=== PATIENT | female | born 1975 | race Caucasian/White ===

== ENCOUNTER 2019-08-06 20:32 | Inpatient (IN) | payer OTHER ==
[~2019-08-06] VITALS: Ht 172.7 cm; Wt 104.0 kg
[2019-08-06 20:36] VITALS: BP 85/53
[2019-08-06] MEDS ORDERED: LANTUS SUBQ (20:46)
[2019-08-06] MEDS ORDERED: HUMALOG KW200 UNIT/1 SUBQ (20:47)
[2019-08-06] MEDS ORDERED: METFORMIN HCL500 M3 PO (20:47)
[2019-08-06] MEDS ORDERED: AMBIEN5 MG PO (20:48)
[2019-08-06] MEDS ORDERED: MELATONIN5 M4 PO (20:48)
[2019-08-06] MEDS ORDERED: TOPROL XL25 MG PO (20:48)
[2019-08-06 21:18] LABS: HEMATOCRIT 23.6 % (37.0-47.0); HEMOGLOBIN 7.4 gm/dL (12.0-15.0); MCH 20.1 pg (26.0-34.0); MCHC 31.3 g/dL (28.0-37.0); MCV 64.3 fL (80.0-100.0); MPV 7.1 fl. (7.2-11.1); NUCLEATED RBCS 0 /100WBC; PLATELET COUNT* 595 thou/uL (150-400); RBC 3.67 mil/uL (4.20-5.00); RDW-CV 24.6 % (10.5-14.5); WBC 26.3 thou/uL (4.0-11.0)
[2019-08-06 21:28] LABS: CALCIUM 8.4 mg/dL (8.5-10.1); CREATININE 1.7 mg/dL (0.6-1.3)
[2019-08-06 21:32] LABS: INR 1.6; PROTIME 16.2 Seconds (9.20-11.50)
[2019-08-06 21:39] LABS: TOTAL BILIRUBIN 2.5 mg/dL (<0.1-1.0)
[2019-08-06 21:40] LABS: POTASSIUM 2.9 mmol/L (3.5-5.1)
[2019-08-06 21:43] LABS: ACETAMINOPHEN < 2 ug/mL (10-30)
[2019-08-06 21:44] LABS: SALICYLATE < 2.8 mg/dL (2.8-20.0)
[2019-08-06 21:48] LABS: ABSOLUTE BASOPHILS 0.3 thou/uL (0.0-0.2); ABSOLUTE EOSINOPHILS 0.3 thou/uL (0.0-0.7); ABSOLUTE LYMPHOCYTES 1.1 thou/uL (0.8-5.3); ABSOLUTE MONOCYTES 1.3 thou/uL (0.0-1.2); ABSOLUTE NEUTROPHILS 23.4 thou/uL (1.6-8.1); CLUMPED PLTS FEW; PLATELET ESTIMATE INCREASED; TOXIC GRANULATION 2+
[2019-08-06 21:49] LABS: ANISOCYTOSIS 2+; HYPOCHROMASIA 2+; POIKILOCYTOSIS 2+
[2019-08-06 21:50] LABS: MICROCYTES 2+; OVALOCYTES Occasional; SCHISTOCYTES 1+; TARGET CELLS Occasional; TEARDROPS Occasional
[2019-08-06 21:54] LABS: INFLUENZA A ANTIGEN Negative (Negative); INFLUENZA B ANTIGEN Negative (Negative)
[2019-08-06 22:20] LABS: URINE BLOOD 3+ (Negative); URINE CLARITY CLOUDY; URINE COLOR ORANGE; URINE GLUCOSE-RANDOM NEGATIVE (Negative); URINE KETONES TRACE (Negative); URINE NITRITE-REFLEX NEGATIVE (Negative); URINE PROTEIN 2+ (Negative); URINE SPECIFIC GRAVITY >= 1.030 (1.005-1.030)
[2019-08-06 22:21] LABS: URINE BILIRUBIN 2+ (Negative); URINE LEUKOCYTES-REFLEX 2+ (Negative)
[2019-08-06 22:25] LABS: ICTOTEST (BILI CONFIRMATORY) Positive (Negative)
[2019-08-06 22:26] LABS: BACTERIA-REFLEX >30 Many /HPF (None Seen); CASTS None Seen /LPF (None Seen); MUCUS 4-6 Moderate strn/LPF (None Seen); SQUAMOUS 0-3 Few /LPF (0-3); URINE RBC >20 Many /HPF (0-2); URINE WBC-REFLEX >25 Many /HPF (0-5); WBC CLUMPS Moderate (None Seen)
[2019-08-06 22:27] LABS: CRYSTALS None Seen /LPF (None Seen)
[2019-08-06 22:28] LABS: AMP/METHAMP Negative (Negative); BARBITURATES Negative (Negative); BENZODIAZEPINES Negative (Negative); COCAINE Negative (Negative); METHADONE Negative (Negative); OPIATES POSITIVE (Negative); PCP Negative (Negative); THC Negative (Negative)
[2019-08-06 23:26] LABS: BE -10.1 mmol/L (-2 to +3); PCO2 26.1 mmHg (35.0-45.0); PO2 93.4 mmHg (75.0-100.0); pH 7.355 (7.340-7.450)
[2019-08-07] VITALS (23 sets, daily range): BP systolic 107–156; BP diastolic 60–92
--- NOTE | 2019-08-07 05:01 | NUR ---
VITALS STABLE, AFEBRILE. DENIES PAIN. 50CC UOP, TEA COLOR. PT DENIES URGENCY, DYSURIA. BMX1, SOME BLEEDING NOTED IN STOOL, PT REPORTS SHE IS ON HER PERIOD. OTHERWISE UNEVENTFUL NIGHT. CALL LIGHT WITHIN REACH. WILL CONTINUE MONITORING.
--- NOTE | 2019-08-07 11:16 | NUR ---
ICU rounds: Pt lives at home alone. Pt mother supportive. Pt alert and oriented. Pt SBA with mobility and ADLs at this time. SW to continue to follow to assist with safe dc planning and provide resources/referrals if needs arise.
[2019-08-07 12:29] LABS: MAGNESIUM 1.4 mg/dL (1.8-2.4); POTASSIUM 3.8 mmol/L (3.5-5.1)
--- NOTE | 2019-08-07 13:41 | EKG ---
[place] [address] ELECTROCARDIOGRAM REPORT Name: AUDRA ONEIL Room: [address] ADM IN .R.#: [id number] Admission: 08/06/19 Attend Phys: Mikael Correa MD Discharge: Date of : 77 Report #: [id number] THIS REPORT FOR: //name// [facility] ED Test Date: 2019-08-06 Test Time: 20:42:15 Pat Name: AUDRA ONEIL Department: Room: [facility] Gender: F Cartographic Aide: MA : 1975 Requested By: Simón Cline Order Number: [id number] MD: Sukhdeep Espana Measurements Intervals Seaman Rate: 127 P: 62 MO: 133 QRS: 21 QRSD: 90 T: -4 QT: 316 QTc: 460 Interpretive Statements Sinus tachycardia Abnormal R-wave progression, early transition Borderline T abnormalities, anterior leads Baseline wander in lead(s) V1 No previous ECG available for comparison Electronically Signed On 08-07-2019 13:41:00 INFORMATION TECHNOLOGY TEACHER by Sukhdeep Espana [email or web address] <ELECTRONICALLY SIGNED> By: Sukhdeep Espana MD, [facility] 08/07/19 1341 41 41 Sukhdeep Espana MD, [facility] /EPI
--- NOTE | 2019-08-07 17:43 | NUR ---
PT CARE ASSUMED AFTER REPORT. ASSESSMENTS COMPLETE. MAG AND POTASSIUM REPLACEMENTS GIVEN. PT ST ON MONITOR. EVENTUALLY RATE INTO THE 130'S WITH RR IN THE 30'S. DR MOORE NOTIFIED OF HR,RR, AND EDEMA. ORDERS RECEIVED FOR LACTIC ACID, CBC, AND BMP AND D5NS DECREASED TO 50ML/H. MAX TEMP 100.8. PRN PAIN MEDICATION GIVEN PER PT REQUESTS. SLOWLY PROGRESSING TOWARDS GOALS.
[2019-08-07 19:11] LABS: HEMATOCRIT 22.1 % (37.0-47.0); HEMOGLOBIN 7.1 gm/dL (12.0-15.0); MCH 20.2 pg (26.0-34.0); MCHC 31.9 g/dL (28.0-37.0); MCV 63.3 fL (80.0-100.0); MPV 7.3 fl. (7.2-11.1); RBC 3.49 mil/uL (4.20-5.00); RDW-CV 24.5 % (10.5-14.5); WBC 21.3 thou/uL (4.0-11.0)
[2019-08-07 19:20] LABS: CALCIUM 8.2 mg/dL (8.5-10.1); CREATININE 1.2 mg/dL (0.6-1.3); POTASSIUM 3.6 mmol/L (3.5-5.1)
[2019-08-08] VITALS (21 sets, daily range): BP systolic 109–143; BP diastolic 59–86
--- NOTE | 2019-08-08 05:29 | NUR ---
VITALS STABLE, AFEBRILE. PT SLEPT THROUGH THE NIGHT. NO BM, 200CC UOP. COMPLAINS OF BACK PAIN. OTHERWISE UNEVENTFUL NIGHT. CALL LIGHT WITHIN REACH. WILL CONTINUE MONITORING.
[2019-08-08 09:30] LABS: NUCLEATED RBCS 0 /100WBC
[2019-08-08 09:32] LABS: ABSOLUTE BASOPHILS 0.1 thou/uL (0.0-0.2); ABSOLUTE EOSINOPHILS 0.1 thou/uL (0.0-0.7); ABSOLUTE LYMPHOCYTES 2.3 thou/uL (0.8-5.3); ABSOLUTE MONOCYTES 1.4 thou/uL (0.0-1.2); ABSOLUTE NEUTROPHILS 18.4 thou/uL (1.6-8.1); BASOPHILS 0.3 %; EOSINOPHILS 0.6 %; HEMATOCRIT 21.4 % (37.0-47.0); LYMPHOCYTES 10.3 %; MCH 19.9 pg (26.0-34.0); MCHC 31.3 g/dL (28.0-37.0); MCV 63.4 fL (80.0-100.0); MONOCYTES 6.3 %; PLATELET COUNT* 663 thou/uL (150-400); POLYS 82.5 %; RBC 3.38 mil/uL (4.20-5.00); RDW-CV 25.2 % (10.5-14.5); WBC 22.3 thou/uL (4.0-11.0)
[2019-08-08 09:35] LABS: HEMOGLOBIN 6.7 gm/dL (12.0-15.0)
[2019-08-08 09:44] LABS: CALCIUM 8.6 mg/dL (8.5-10.1); POTASSIUM 3.8 mmol/L (3.5-5.1)
[2019-08-08 11:02] LABS: % SATURATION 2 % (20-39); IRON < 5 ug/dL (50-175)
--- NOTE | 2019-08-08 12:36 | NUR ---
ICU rounds: pt receiving blood transfusion. Stepfather at BS. Pt states she will go to her mother's house upon dc. No plans for dc over the weekend
[2019-08-08 14:57] LABS: HEMATOCRIT 22.9 % (37.0-47.0); HEMOGLOBIN 7.3 gm/dL (12.0-15.0)
--- NOTE | 2019-08-08 16:39 | NUR ---
PT A&O x4. ECG SHOWS ST. I UNIT OF BLOOD TRANSFUSED. GETS UP TO THE BSC, STB ASSIST. GOOD UOP. TOLERATING DIET. CT ABD/PELVIS DONE. REPORT GIVEN TO NITA ISRAEL, TELE.
[2019-08-09] VITALS (7 sets, daily range): BP systolic 107–151; BP diastolic 57–79
--- NOTE | 2019-08-09 05:37 | NUR ---
VITALS STABLE, AFEBRILE. PT SLEPT THROUGH THE NIGHT. COMPLAINS OF BACK PAIN. HR 120s-130s THROUGH MOST OF THE NIGHT. PT DENIES CP/SOB/N/V. OTHERWISE UNEVENTFUL NIGHT. CALL LIGHT WITHIN REACH. WILL CONTINUE MONITORING.
[2019-08-09 14:05] LABS: ABSOLUTE EOSINOPHILS 0.2 thou/uL (0.0-0.7); ABSOLUTE LYMPHOCYTES 2.6 thou/uL (0.8-5.3); ABSOLUTE MONOCYTES 1.3 thou/uL (0.0-1.2); BASOPHILS 0.3 %; HEMATOCRIT 21.2 % (37.0-47.0); LYMPHOCYTES 17.2 %; MCH 20.6 pg (26.0-34.0); MCHC 32.7 g/dL (28.0-37.0); MCV 63.2 fL (80.0-100.0); MONOCYTES 8.9 %; NUCLEATED RBCS 0 /100WBC; POLYS 72.6 %; RBC 3.36 mil/uL (4.20-5.00); RDW-CV 25.9 % (10.5-14.5); WBC 15.1 thou/uL (4.0-11.0)
[2019-08-09 14:13] LABS: PLATELET COUNT* 553 thou/uL (150-400)
[2019-08-09 14:17] LABS: ALBUMIN 1.3 g/dL (3.4-5.0); CALCIUM 8.3 mg/dL (8.5-10.1); CREATININE 0.9 mg/dL (0.6-1.3); HEMOGLOBIN 6.9 gm/dL (12.0-15.0); POTASSIUM 3.4 mmol/L (3.5-5.1); TOTAL BILIRUBIN 1.4 mg/dL (<0.1-1.0); TOTAL PROTEIN 6.2 g/dL (6.4-8.2)
--- NOTE | 2019-08-09 19:51 | NUR ---
ASSUMED PT CARE AT 0730. ASSESSMENT COMPLETED CHARTED. ABLE TO MAKE NEEDS KNOWN. UP WITH SBA. IV FLUIDS STOPPED TODAY DUE TO HGB 6.9, NOTIFIED WILL REDRAW TOMORROW FOR NEW ORDERS IF NEEDED. PT SLEEPING MOST OF THE DAY. 2L O2. PT COUGHING BUT NO SUPTUM NOTED. WILL CONTINUE TO MONITOR.
[2019-08-10 03:58] VITALS: BP 128/68
[2019-08-10 05:15] LABS: HEMATOCRIT 21.3 % (37.0-47.0); MCH 20.7 pg (26.0-34.0); MCHC 32.7 g/dL (28.0-37.0); MCV 63.3 fL (80.0-100.0); MPV 6.9 fl. (7.2-11.1); RBC 3.37 mil/uL (4.20-5.00); RDW-CV 25.7 % (10.5-14.5); WBC 12.4 thou/uL (4.0-11.0)
[2019-08-10 08:00] VITALS: BP 147/80
--- NOTE | 2019-08-10 08:09 | NUR ---
PT A+O X4. USES CALL LIGHT APPROPRIATELY TO GET UP TO THE BATHROOM. STEAADY WITH STANDBY ASSIST. TRACING MILD ST ON MONITOR. NORCO @ HS EFFECTIVE FOR PAIN. PRN COUGH MED EFFECTIVE- GIVEN X 2. RESTED THROUGH MOST OF NIGHT. CALL LIGHT IN REACH. HOURLY ROUNDING FOR SAFETY.
[2019-08-10 15:02] VITALS: BP 123/63
--- NOTE | 2019-08-10 17:12 | NUR ---
ASSUMED PT CARE AT 0730. ASSESSMENT COMPLETED CHARTED. ABLE TO MAKE NEEDS KNOWN. UP WITH SBA. RESTING IN BED MOST OF THE DAY. C/O COUGH AND PAIN AND GAVE PRN FOR BOTH PER EMAR. MOM AT BEDSIDE MOST OF THE DAY. CALL LIGHT WITHIN REACH. WILL CONTINUE TO MONITOR.
[2019-08-10 18:35] VITALS: BP 153/81
[2019-08-10 20:00] VITALS: BP 137/69
[2019-08-11 00:06] VITALS: BP 133/53
[2019-08-11 03:45] VITALS: BP 140/63
--- NOTE | 2019-08-11 04:17 | NUR ---
ASSUMED CARE AT APPROX 1930. PT IS AWAKE AND ORIENTED X4. VSS ON 2L OF O2/NC. PATTERN REPAIR PERSON IN PLACE TRACING SR/ST. ASSESSMENT DONE AND CHARTED. PT C/O BACK PAIN THAT IS CHRONIC, PARTIALLY RELIEVED BY PAIN MEDS GIVEN PER SEP. PT IS ABLE TO SLEEP MOST OF THE NIGHT. DENIES DIZZINESS/LIGHTHEADEDNESS. CALL LIGHT WITHIN REACH. HIGH FALL PRECAUTIONS IN PLACE. HOURLY ROUNDING DONE FOR PT SAFETY.
[2019-08-11 06:09] LABS: ALBUMIN 1.4 g/dL (3.4-5.0); CALCIUM 7.9 mg/dL (8.5-10.1); CREATININE 0.8 mg/dL (0.6-1.3); HEMATOCRIT 21.4 % (37.0-47.0); MCH 20.6 pg (26.0-34.0); MCHC 32.4 g/dL (28.0-37.0); MCV 63.4 fL (80.0-100.0); MPV 7.1 fl. (7.2-11.1); NUCLEATED RBCS 0 /100WBC; PLATELET COUNT* 520 thou/uL (150-400); POTASSIUM 3.2 mmol/L (3.5-5.1); RBC 3.38 mil/uL (4.20-5.00); RDW-CV 26.2 % (10.5-14.5); TOTAL BILIRUBIN 0.7 mg/dL (<0.1-1.0); TOTAL PROTEIN 6.6 g/dL (6.4-8.2); WBC 9.8 thou/uL (4.0-11.0)
[2019-08-11 06:47] LABS: ABSOLUTE EOSINOPHILS 0.1 thou/uL (0.0-0.7); ABSOLUTE LYMPHOCYTES 1.8 thou/uL (0.8-5.3); ABSOLUTE MONOCYTES 0.8 thou/uL (0.0-1.2); ABSOLUTE NEUTROPHILS 7.2 thou/uL (1.6-8.1); HYPOCHROMASIA 3+; METAMYELOCYTES 1 %; PLATELET ESTIMATE INCREASED
[2019-08-11 06:48] LABS: ANISOCYTOSIS 3+; MICROCYTES 2+
--- NOTE | 2019-08-11 07:36 | CON ---
[address] [address] CONSULTATION Name: THADKYLEEAUDRA Courtney Room: [address] IN M.R.#: [id number] Admission: 08/06/19 Attend Phys: Mikael Correa MD Discharge: Date of : 77 Report #: [id number] THIS REPORT FOR: //name// CC: Kylah Hernandez Correa DATE OF SERVICE: 08/08/2019 INFECTIOUS DISEASE CONSULTATION ATTENDING PHYSICIAN: Robb Mcdonough MD REASON FOR EVALUATION: Complicated urinary tract infection and likely pyelonephritis in the setting of fairly recently diagnosed diabetes mellitus. HISTORY OF PRESENT ILLNESS: Chart reviewed, patient examined. This is a 43-year-old again with known diabetes mellitus diagnosed in 05/2019. She was admitted in different facility, was diagnosed with diabetic ketoacidosis, noted blood sugars were greater than 10,000. She has had fibromyalgia as well. She had been home, at that time, was found to have complicated UTI with Escherichia coli, extended-spectrum beta-lactamase production. She received parenteral therapy 2 week post discharge, I believe with ertapenem. She presented with several syncopal episodes. It is not clear that she had fevers, has some chills. She has generalized myalgias and arthralgias, although she states that her baseline did have some diminished oral intake generally. On evaluation, was found to have marked lactic acidemia up to 7, most recent was 1.9. Actually has profound anemia too with hemoglobin at 6.7, pending transfusion. She is lucid at this point. She appears ill, not overtly toxic. Hemodynamically, she is tachycardic, although blood pressure is recently stable. Saturations are adequate on supplemental oxygen per nasal cannula. ALLERGIES: None known. MEDICATIONS: Include levofloxacin, insulin lispro, metformin, p.r.n. analgesics and antiemetics. PAST MEDICAL HISTORY: Recent diagnosis of diabetes mellitus type 2 with a presentation with diabetic ketoacidosis, fibromyalgia, previous history of tonsillectomy, oophorectomy, anxiety, depression. SOCIAL HISTORY: Nonsmoker, no ethanol, no illicit drug use. FAMILY HISTORY: Noncontributory. REVIEW OF SYSTEMS: As above, [place] [address] CONSULTATION Name: AUDRA ONEIL Room: [address]#: [id number] Admission: 08/06/19 Attend Phys: Mikael Correa MD Discharge: Date of : 77 Report #: [id number] PHYSICAL EXAMINATION: GENERAL: She appears ill, not overtly toxic. She has somewhat of a flat affect, is mildly undernourished. VITAL SIGNS: Temperature 99, pulse 124, respirations 30s, blood pressure is 132/73. SKIN: Warm, dry. HEENT: Normocephalic. Extraocular muscles intact. NECK: Supple. LUNGS: Diminished breath sounds. HEART: Regular, tachycardic. I do not appreciate a murmur. ABDOMEN: Soft, nontender, nondistended. EXTREMITIES: No cyanosis. GENITOURINARY: Deferred. LABORATORY DATA: Initial studies, troponin less than 0.06. PT is 16.2, INR 1.6, D-dimer of 2.03. Electrolytes: Sodium 140, potassium 2.9, chloride 104, bicarbonate is 20, anion gap of 16, BUN and creatinine 19 and 1.7, total bilirubin of 2.5, albumin of 2.0, total protein 7.0. Recent studies showed sodium 138, creatinine 1.0. Estimated GFR of 61. CBC initially white count 26.3, H and H 7.4 and 23.6, platelets of 595. Repeat white count this morning 22.3, H and H 6.7 and 21.4, platelets of 663, likely acute phase reactant. TSH less than 0.007. Blood cultures sterile thus far. Urinalysis showed greater than 25 white cells, greater than 30 bacteria. Chest x-ray: Mild patchy medial bibasilar atelectasis versus infiltrate. Influenza antigen was negative. Drug screen was noted for opiates. ASSESSMENT AND PLAN: Complicated urinary tract infection with a recent history of same. We will adjust antimicrobial therapy based on previous isolation of multiple resistant gram-negative. She is not aware of previous imaging studies. We will pursue that as well to exclude a complicating factor such as obstructive etiology. She may certainly have a degree of pneumonitis as well. She should have adequate coverage based on broad-spectrum approach. Not sure I can explain the profound anemia at this point, seems to have marked hyperthyroidism as well and then apathetic nature. We will need endocrine evaluation. At this point, she is not overtly toxic, monitor expectantly. <ELECTRONICALLY SIGNED> By: Lavelle Oscar MD 08/11/19 0736 [id number] Oscar MD /nt
[2019-08-11 08:00] VITALS: BP 134/57
[2019-08-11 12:00] VITALS: BP 134/57; BP 140/61
--- NOTE | 2019-08-11 13:36 | NUR ---
CONTINUE TO FOLLOW, MET WITH PT AND MOM. ENCOURAGED PT TO BE UP MORE. PT STILL PLANS TO GO TO HER MOM'S AT [place]. PT FOLLOWS AT THE [facility] IN [place] AND STATES SHE APPLIED FOR MEDICAID LAST WEEK PRIOR TO ADMIT. DENIES OTHER NEEDS. WILL FOLLOW
[2019-08-11 16:17] VITALS: BP 145/63
--- NOTE | 2019-08-11 19:38 | NUR ---
ASSUMED PT CARE AT 0730. ASSESSMENT COMPLETED CHARTED. ABLE TO MAKE NEEDS KNOWN. RESTING IN BED MOST OF THE DAY. C/O BACK PAIN AND GAVE PRN PAIN MEDICATION PER EMAR. UP WITH SBA. WILL CONTINUE TO MONITOR.
[2019-08-11 20:00] VITALS: BP 143/64
[2019-08-12 00:10] VITALS: BP 136/69
[2019-08-12 04:39] VITALS: BP 148/73
--- NOTE | 2019-08-12 04:48 | NUR ---
ASSUMED PT CARE AT APPROX 1930. PT IS AWAKE AND ORIENTED X4. VSS ON ROOM AIR. SENIOR CONSULTANT IN PLACE TRACING SR/ST. ASSESSMENT DONE AND CHARTED. PT IS ABLE TO SLEEP MOST OF THE NIGHT. HIGH FALL PRECAUTIONS IN PLACE. CALL LIGHT WITHIN REACH. HOURLY ROUNDING DONE FOR PT SAFETY.
--- NOTE | 2019-08-12 07:05 | NUR ---
CHANGE OF SHIFT, BEDSIDE REPORT GIVEN PATIENT SEEN AT BEDSIDE, IN BED RESTING ASSUMED PATIENT CARE
[2019-08-12 08:00] VITALS: BP 135/64
[2019-08-12 12:39] VITALS: BP 141/64
[2019-08-12] MEDS ORDERED: TAPAZOLE10 MG PO (13:52)
[2019-08-12] MEDS ORDERED: BACTRIM DS TAB1 EACH PO (13:52)
[2019-08-12] MEDS ORDERED: CYMBALTA30 MG PO (13:52)
--- NOTE | 2019-08-12 14:44 | NUR ---
ORDERS NOTED FOR DC, PT IN NEED OF ENDO F/U. DISCUSSED WITH PT AND MOM. MOM WILL ASSIST PT WITH GETTING HER SCRIPT FILLED. AGREEABLE TO REF TO [facility] FOR [facility]O F/U IF ACCEPTED. SUBMITTED REFERRAL ONLINE AND FAXED CLINICAL TO [phone]
--- NOTE | 2019-08-12 15:54 | NUR ---
PATIENT DISCHARGED TO HOME ALL DISCHARGE INSTRUCTIONS GIVEN, ACKNOWLEDGED, SIGNED COPIES GIVEN IV AND HEART MONITOR REMOVED PERSONAL BELONGINGS RETURNED PATIENT ASSISTED OUT VIA WC GOOD CONDITION TO WAITING CAR
== END 2019-08-12 16:07 | disposition home or self-care (01) | DRG 871 ==
LOC: M.ERS 20:32 → M.TBA-ER 23:49 → M.ICU 23:49 → M.2W 08-08 17:08
PROVIDERS: Emergency Medicine; Internal Medicine; ADMIT Internal Medicine
DX: A41.9 Sepsis, unspecified organism (principal); J15.6 Pneumonia due to other Gram-negative bacteria; N39.0 Urinary tract infection, site not specified; E11.9 Type 2 diabetes mellitus without complications; F32.9 Major depressive disorder, single episode, unspecified; R65.20 Severe sepsis without septic shock; E88.09 Other disorders of plasma-protein metabolism, not elsewhere classified; D47.3 Essential (hemorrhagic) thrombocythemia; K58.9 Irritable bowel syndrome, unspecified; D50.9 Iron deficiency anemia, unspecified; R00.0 Tachycardia, unspecified; M79.7 Fibromyalgia; B96.20 Unspecified Escherichia coli [E. coli] as the cause of diseases classified elsewhere; E05.90 Thyrotoxicosis, unspecified without thyrotoxic crisis or storm; D63.8 Anemia in other chronic diseases classified elsewhere; D17.71 Benign lipomatous neoplasm of kidney; Z83.3 Family history of diabetes mellitus; Z82.49 Family history of ischemic heart disease and other diseases of the circulatory system; Z79.899 Other long term (current) drug therapy